=== PATIENT | female | born 1945 | race American Indian/Alaskan Native ===

== ENCOUNTER 2018-03-15 07:22 | Emergency (ER) | payer MEDICARE ==
--- NOTE | 2018-03-15 08:33 | Emergency Department Report ---
<KRZYSZTOF LYNN - Last Filed: 03/15/18 17:23> ED Neuro Deficit HPI - General Chief Complaint: Neuro Symptoms/Deficit Stated Complaint: LEFT SIDE FACIAL HEAVINESS Time Seen by Provider: 03/15/18 08:08 - Related Data Home Medications: Previous Rx's Medication Instructions Recorded Last Taken Type Valacyclovir HCl [Valtrex] 500 mg PO BID 5 Days #10 tablet 03/15/18 Unknown Rx predniSONE [Prednisone] 50 mg PO DAILY #5 tablet 03/15/18 Unknown Rx Allergies/Adverse Reactions: Allergies Allergy/AdvReac Type Severity Reaction Status Date / Time acetaminophen [From Vicodin] Allergy Itching Verified 03/15/18 07:46 albuterol Allergy Unknown Verified 03/15/18 07:46 codeine Allergy Itching Verified 03/15/18 07:46 hydralazine Allergy Unknown Verified 03/15/18 07:46 hydrocodone [From Vicodin] Allergy Itching Verified 03/15/18 07:46 oxycodone [From Percocet] Allergy Itching Verified 03/15/18 07:46 contrast dye Allergy Hives Uncoded 03/15/18 07:46 ED Review of Systems ROS: Stated complaint: LEFT SIDE FACIAL HEAVINESS Other details as noted in HPI ED Past Medical Hx - Medications Home Medications: Home Medications Medication Instructions Recorded Confirmed Last Taken Type Valacyclovir HCl [Valtrex] 500 mg PO BID 5 Days #10 tablet 03/15/18 Unknown Rx predniSONE [Prednisone] 50 mg PO DAILY #5 tablet 03/15/18 Unknown Rx ED Course Vital Signs 03/15/18 03/15/18 03/15/18 07:38 07:46 07:47 Temperature 97.6 F Pulse Rate 73 68 75 Respiratory 16 10 L 18 Rate Blood Pressure 140/98 140/98 O2 Sat by Pulse 99 100 Oximetry 03/15/18 03/15/18 03/15/18 08:00 08:16 10:48 Temperature Pulse Rate 67 65 71 Respiratory 11 L 16 15 Rate Blood Pressure 168/85 168/85 172/84 O2 Sat by Pulse 100 100 Oximetry 03/15/18 03/15/18 03/15/18 11:00 11:15 11:30 Temperature Pulse Rate 62 60 63 Respiratory 14 13 14 Rate Blood Pressure 163/79 173/74 164/77 O2 Sat by Pulse 100 100 100 Oximetry 03/15/18 03/15/18 03/15/18 11:45 12:00 12:15 Temperature Pulse Rate 63 65 64 Respiratory 14 11 L 12 Rate Blood Pressure 158/75 158/75 145/78 O2 Sat by Pulse 100 100 97 Oximetry 03/15/18 03/15/18 03/15/18 12:30 12:45 13:00 Temperature Pulse Rate 60 61 63 Respiratory 14 13 14 Rate Blood Pressure 145/78 145/77 145/77 O2 Sat by Pulse 97 98 97 Oximetry 03/15/18 03/15/18 03/15/18 13:15 13:30 13:45 Temperature Pulse Rate 63 67 67 Respiratory 13 13 14 Rate Blood Pressure 158/79 158/79 155/87 O2 Sat by Pulse 100 100 98 Oximetry 03/15/18 03/15/18 03/15/18 14:00 14:16 15:08 Temperature Pulse Rate 64 68 Respiratory 14 11 L Rate Blood Pressure 155/87 181/89 181/89 O2 Sat by Pulse 98 96 Oximetry 03/15/18 03/15/18 03/15/18 15:45 16:00 16:15 Temperature Pulse Rate 63 61 68 Respiratory 10 L 14 14 Rate Blood Pressure 165/80 165/80 151/80 O2 Sat by Pulse 98 98 99 Oximetry 03/15/18 03/15/18 03/15/18 16:30 16:45 17:00 Temperature Pulse Rate 66 63 63 Respiratory 11 L 13 11 L Rate Blood Pressure 155/71 153/76 150/72 O2 Sat by Pulse 99 99 97 Oximetry 03/15/18 03/15/18 17:15 17:30 Temperature Pulse Rate 70 72 Respiratory 17 12 Rate Blood Pressure 163/84 158/84 O2 Sat by Pulse 100 99 Oximetry - Lab Data Result diagrams: 03/15/18 07:55 03/15/18 07:55 Lab Results 03/15/18 03/15/18 03/15/18 Range/Units 07:55 07:55 07:55 WBC 7.3 (4.5-11.0) K/mm3 RBC 4.04 (3.65-5.03) M/mm3 Hgb 10.9 (10.1-14.3) gm/dl Hct 34.0 (30.3-42.9) % MCV 84 (79-97) fl MCH 27 L (28-32) pg MCHC 32 (30-34) % RDW 15.0 (13.2-15.2) % Plt Count 188 (140-440) K/mm3 Lymph % (Auto) 24.1 (13.4-35.0) % [place] % (Auto) 10.5 H (0.0-7.3) % Eos % (Auto) 7.9 H (0.0-4.3) % Baso % (Auto) 1.0 (0.0-1.8) % Lymph # 1.8 (1.2-5.4) K/mm3 [place] # 0.8 (0.0-0.8) K/mm3 Eos # 0.6 H (0.0-0.4) K/mm3 Baso # 0.1 (0.0-0.1) K/mm3 Seg Neutrophils % 56.5 (40.0-70.0) % Seg Neutrophils # 4.1 (1.8-7.7) K/mm3 PT 14.4 (12.2-14.9) Sec. INR 1.07 (0.87-1.13) APTT 33.7 (24.2-36.6) Sec. Thrombin Time (15.1-19.6) Sec. Sodium 138 (137-145) mmol/L Potassium 4.5 (3.6-5.0) mmol/L Chloride 97.6 L (98-107) mmol/L Carbon Dioxide 20 L (22-30) mmol/L Anion Gap 25 mmol/L BUN 66 H (7-17) mg/dL Creatinine 13.5 H (0.7-1.2) mg/dL Estimated GFR 3 ml/min BUN/Creatinine Ratio 5 % Glucose 79 (65-100) mg/dL POC Glucose (70-105) Calcium 9.0 (8.4-10.2) mg/dL Troponin T 0.013 (0.00-0.029) ng/mL 03/15/18 03/15/18 Range/Units 07:55 08:16 WBC (4.5-11.0) K/mm3 RBC (3.65-5.03) M/mm3 Hgb (10.1-14.3) gm/dl Hct (30.3-42.9) % MCV (79-97) fl MCH (28-32) pg MCHC (30-34) % RDW (13.2-15.2) % Plt Count (140-440) K/mm3 Lymph % (Auto) (13.4-35.0) % [place] % (Auto) (0.0-7.3) % Eos % (Auto) (0.0-4.3) % Baso % (Auto) (0.0-1.8) % Lymph # (1.2-5.4) K/mm3 [place] # (0.0-0.8) K/mm3 Eos # (0.0-0.4) K/mm3 Baso # (0.0-0.1) K/mm3 Seg Neutrophils % (40.0-70.0) % Seg Neutrophils # (1.8-7.7) K/mm3 PT (12.2-14.9) Sec. INR (0.87-1.13) APTT (24.2-36.6) Sec. Thrombin Time 20.1 H (15.1-19.6) Sec. Sodium (137-145) mmol/L Potassium (3.6-5.0) mmol/L Chloride (98-107) mmol/L Carbon Dioxide (22-30) mmol/L Anion Gap mmol/L BUN (7-17) mg/dL Creatinine (0.7-1.2) mg/dL Estimated GFR ml/min BUN/Creatinine Ratio % Glucose (65-100) mg/dL POC Glucose 73 (70-105) Calcium (8.4-10.2) mg/dL Troponin T (0.00-0.029) ng/mL - Radiology Data Radiology results: report reviewed MRI, MRA of the brain and neck is negative for acute finding. - Medical Decision Making Patient stated that she is feeling fine. No other neurological findings on exam. I advised patient to follow-up with his primary care physician in the next 2-3 days. Critical care attestation.: If time is entered above; I have spent that time in minutes in the direct care of this critically ill patient, excluding procedure time. ED Disposition Clinical Impression: Giordano's palsy Disposition: DC-01 TO HOME OR SELFCARE Is pt being admited?: No Condition: Stable Instructions: Giordano Palsy (ED) Prescriptions: predniSONE [Prednisone] 50 mg PO DAILY #5 tablet Valacyclovir HCl [Valtrex] 500 mg PO BID 5 Days #10 tablet Referrals: PRIMARY CARE, [Primary Care Provider] - 3-5 Days <SHANAE JALLOH - Last Filed: 03/16/18 19:18> ED Neuro Deficit HPI - General Source: patient Mode of arrival: Ambulatory Limitations: No Limitations - History of Present Illness Initial Comments: 72-year-old female with history of ESRD presents to ED with right facial droop. Patient states she noticed it yesterday morning at 8 AM when she was brushing her teeth. Patient went to dialysis this morning, symptoms were noted, and patient was sent to the ER for further evaluation. Patient denies extremity weakness or numbness. Reports has been unable to close right eye. Denies headache, chest pain. No history of CVA in the past. -: days(s) (1) Location: right face Presenting Symptoms: Present: Facial Droop/Numbness History of same: No Severity: moderate Quality: weak Improves With: none Worsens With: none Associated Symptoms: denies: confusion, chest pain, cough, diaphoresis, fever/ chills, headaches, nausea/vomiting, shortness of breath ED Review of Systems Comment: All other systems reviewed and negative Constitutional: denies: chills, fever Respiratory: denies: shortness of breath Cardiovascular: denies: chest pain Gastrointestinal: denies: nausea, vomiting Neurological: other (reports facial droop). denies: headache ED Past Medical Hx - Past Medical History Previous Medical History?: Yes Hx Hypertension: Yes Hx Pulmonary Embolism: Yes Hx Renal Disease: Yes (dialysis) Additional medical history: growth on pancrease - Surgical History Past Surgical History?: Yes Hx Appendectomy: Yes Additional Surgical History: kidney transplant. hysterectomy - Social History Smoking Status: Never Smoker Substance Use Type: Alcohol ED Neuro Physical Exam - General Limitations: No Limitations General appearance: alert, in no apparent distress Suspected Stroke: Yes - Head Head exam: Present: atraumatic, normocephalic - Eye Eye exam: Present: normal appearance - ENT ENT exam: Present: mucous membranes moist - Neck Neck exam: Present: normal inspection - Respiratory Respiratory exam: Present: normal lung sounds bilaterally. Absent: respiratory distress - Cardiovascular Cardiovascular Exam: Present: regular rate, normal rhythm - GI/Abdominal GI/Abdominal exam: Present: soft, tenderness. Absent: distended - Extremities Exam Extremities exam: Present: normal inspection - Neurological Exam Neurological exam: Present: alert, oriented X3, other (weakness present to right forehead; unable to close eyelid of right eye) - NIHSS Assessment Interval: Baseline 1a. Level of Consciousness: alert/keenly responsive 1b. LOC Questions: answers both correctly 1c. LOC Commands: performs tasks correctly 2. Best Gaze: normal 3. Visual: no visual loss 4. Facial Palsy: unilateral complete paralysis 5b. Motor Arm Right: no drift 5a. Motor Arm Left: no drift 6a. Motor Leg Left: no drift 6b. Motor Leg Right: no drift 7. Limb Ataxia: absent 8. Sensory: normal 9. Best Language: no aphasia 10. Dysarthria: mild/moderate dysarthria 11. Extinction/Inattention: no abnormality Total Score: 4 Stroke Severity: Minor Stroke - Psychiatric Psychiatric exam: Present: normal affect, normal mood - Skin Skin exam: Present: warm, dry, intact, normal color ED Course - Consultations Consultation #1: 03/15/18 10:25 Spoke w/ Dr Levine, neurologist. Suggests MRI since sx's appear to be Giordano's but with dysarthria present. - Lab Data Result diagrams: 03/15/18 07:55 03/15/18 07:55 - EKG Data -: EKG Interpreted by Mo EKG shows normal: sinus rhythm, axis, intervals, QRS complexes, ST-T waves Rate: normal Interpretation: no acute changes - Medical Decision Making 72-year-old female with right facial droop [address] head negative. Spoke with neurologist recommends MRI due to patient's slurred speech. On exam patient has right facial weakness with involvement of the forehead, also unable to close right eye. Clinically appears to be Giordano's palsy. Speech slightly slurred due to weakness right side of mouth. However MRI pending, pt signed out to Dr Lynn to follow up on MRI results. - Differential Diagnosis Giordano's Palsy, CVA, MS
[2018-03-15 08:35] LABS: Basophils # (Auto) 0.1 K/mm3 (0.0-0.1); Eosinophils # (Auto) 0.6 K/mm3 (0.0-0.4); Eosinophils % (Auto) 7.9 % (0.0-4.3); Hemoglobin 10.9 gm/dl (10.1-14.3); Lymphocytes # (Auto) 1.8 K/mm3 (1.2-5.4); Lymphocytes % (Auto) 24.1 % (13.4-35.0); Mean Corpuscular HGB Conc 32 % (30-34); Mean Corpuscular Hemoglobin 27 pg (28-32); Mean Corpuscular Volume 84 fl (79-97); Monocytes # (Auto) 0.8 K/mm3 (0.0-0.8); Monocytes % (Auto) 10.5 % (0.0-7.3); Platelet Count 188 K/mm3 (140-440); Red Blood Count 4.04 M/mm3 (3.65-5.03)
[2018-03-15 08:36] LABS: INR 1.07 (0.87-1.13)
[2018-03-15 08:37] LABS: Partial Thromboplastin Time 33.7 Sec. (24.2-36.6)
--- NOTE | 2018-03-15 08:47 | Cat Scan Report ---
CT HEAD WITHOUT CONTRAST: HISTORY: Slurred speech, facial droop. TECHNIQUE: Sequential CT images without contrast. FINDINGS: Images obtained show bilateral prominence of the sulci and ventricles. There are no abnormal intra- or extra-axial blood or fluid collections. There are no focal masses or evidence of mass effect. The james white matter differentiation appears within normal limits. Regions of periventricular decreased attenuation are consistent with microangiopathic ischemic disease. The posterior fossa structures including the fourth ventricle, cerebellum, and brainstem appear normal. IMPRESSION: Evidence of atrophy and microangiopathic ischemic disease. No acute intracranial process noted.
[2018-03-15 17:41] VITALS: BP 158/84
--- NOTE | 2018-03-16 10:27 | Magnetic Resonance Report ---
FINAL REPORT EXAM: MRI BRAIN WO CONTRAST AND MRA BRAIN AND MRA NECK WO CONTRAST HISTORY: right facial droop slurred speech TECHNIQUE: Multiplanar MRA of [place] of [place]. No contrast administered. PRIORS: None. FINDINGS: Normal flow related enhancement in the basilar and bilateral internal carotid arteries and their main intracranial branches. 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 No abnormal aneurysmal dilatation, focal signal dropout or signal void to suggest significant stenosis or apparent occlusion. IMPRESSION: 1. No significant findings.
--- NOTE | 2018-03-16 10:27 | Magnetic Resonance Report ---
FINAL REPORT EXAM: MRI BRAIN WO CONTRAST AND MRA BRAIN AND MRA NECK WO CONTRAST HISTORY: rt facial droop slurred speech TECHNIQUE: Multiplanar MRI of the brain. No contrast administered. PRIORS: None. FINDINGS: Age-related volume loss. Mild, patchy foci of T2 and FLAIR bright signal in the periventricular and subcortical white matter are nonspecific, but may relate to chronic small vessel ischemic change. No acute infarct seen on diffusion-weighted imaging. No parenchymal mass, mass-effect, hemorrhage, midline shift or hydrocephalus. No pathologic extra-axial fluid collection. No pineal region or [place] masses. No cerebellar tonsillar herniation. IMPRESSION: 1. No acute intracranial findings. 2. Chronic ischemic and atrophic changes.
--- NOTE | 2018-03-16 10:27 | Magnetic Resonance Report ---
FINAL REPORT EXAM: MRI BRAIN WO CONTRAST AND MRA BRAIN AND MRA NECK WO CONTRAST HISTORY: rt facial droop slurred speech TECHNIQUE: Multiplanar MRA of carotid bifurcations. No contrast administered. PRIORS: None. FINDINGS: Normal flow related enhancement in the bilateral common, internal and external carotid arteries. No abnormal aneurysmal dilatation or focal signal dropout or signal void to suggest significant stenosis. Carotid bifurcations have normal contour without significant plaque formation. Vertebral arteries appear patent, with left-sided dominance. IMPRESSION: 1. Less than 50% carotid stenosis by NASCET criteria.
== END 2018-03-15 17:41 | disposition home or self-care (01) ==
LOC: ED 07:22
DX: G51.0 Bell's palsy (principal); I12.0 Hypertensive chronic kidney disease with stage 5 chronic kidney disease or end stage renal disease; N18.6 End stage renal disease; Z99.2 Dependence on renal dialysis; I65.21 Occlusion and stenosis of right carotid artery; Z90.710 Acquired absence of both cervix and uterus; Z90.49 Acquired absence of other specified parts of digestive tract; Z88.8 Allergy status to other drugs, medicaments and biological substances; Z88.6 Allergy status to analgesic agent; Z91.041 Radiographic dye allergy status
CPT/HCPCS: 36415; 70450; 70544; 70547; 70551; 80048; 82962; 84484; 85025; 85610; 85670; 85730; 93005; 93010; 99285; G8996-GN; G8997-GN; G8998-GN